=== PATIENT | female | born 1935 | race Caucasian/White ===

== ENCOUNTER 2021-08-03 12:33 | Inpatient (IN) ==
[2021-08-03] MEDS ORDERED: SODIUM CHLORIDE 0.9% 500 ML IV SCH (13:15)
--- NOTE | 2021-08-03 13:22 | Emergency Department Note ---
Impression & Plan Post-op bleeding, Weakness, Anemia, DONELL (acute kidney injury) ED Provider Note NAME: KEVIN CHRISTINE AGE: 86 SEX: F : 1935 ARRIVES VIA: Ambulance INFORMANT: [Patient][nursing] ED PROVIDER(S): [Irving Pack MD] CHIEF COMPLAINT: Bleeding HISTORY OF PRESENT ILLNESS: The patient is an 86-year-old female who had right hip replacement surgery on the , 4 days ago. She was discharged and arrived at [facility] last evening. This morning, her right hip incision was soaked in blood and she was hypotensive in the 80s. A hemoglobin was checked and the value was 6.7. She had been in the eights apparently at discharge from the hospital. The patient currently feels a bit fatigued/weak. No chest pain or shortness of breath. No nausea or vomiting. No fever or chills. As per EMS, her blood pressure has improved to normal on the ride here, she did not receive any IV fluids. Of note, the patient is on Coumadin for A. fib. REVIEW OF SYSTEMS: See HPI for pertinent positives and negatives. A total of ten systems were revie wed and were otherwise negative. PMHx/PSHx: See Below SOCIAL HISTORY: See Below. PHYSICAL EXAM: GENERAL: Patient is in no acute distress. HEENT: No acute trauma, normocephalic atraumatic, mucous membranes moist, no nasal congestion, no scleral icterus. NECK: No stridor, no adenopathy, no meningismus, trachea is midline. LUNGS: Clear to auscultation bilaterally, no wheeze, no rhonchi, breath sounds equal. HEART: Without murmurs gallops or rubs, regular rate and rhythm. ABDOMEN: Soft, nontender, bowel sounds positive, no hernias, no peritonitis. EXTREMITIES: No cyanosis. The patient's bryan along the right lateral hip are intact. The dressing was soaked with blood however, there is no active bleeding. No surrounding erythema. NEUROLOGIC: Oriented x 3, no acute motor or sensory deficits, no focal weakness. SKIN: No rash, no jaundice, no diaphoresis. Pale. DIFFERENTIAL DIAGNOSIS: Coagulopathy, anemia, hematoma, thrombocytopenia, cellulitis, abscess, postop bleeding, among others. EMERGENCY DEPARTMENT COURSE/PROCEDURES: ECG: Indication was weakness and bleeding. The ECG shows a sinus rhythm with what I believe is a PAC. There is no ST elevation, QTc is 383. The rate is 72. There is some nonspecific ST change. Continuous Cardiac Monitoring: An order was placed for continuous cardiac monitoring. The monitor shows a rate of 81 with normal sinus rhythm. MEDICAL DECISION MAKING: There is a mild leukocytosis, this could be consistent with infection or possibly the stress of her situation. Hemoglobin was low at 7.5. There was a normal platelet count. INR was high at 1.6, consistent with her Coumadin use. Creatinine was quite high at 4.39. This is above her baseline and likely consistent with some acute kidney injury. No worrisome liver enzyme elevation. Patient appeared to be in a euthyroid state. Troponin was somewhat elevated and possibly consistent with cardiac injury or strain. ECG showed a sinus rhythm, no acute ischemic change. Covid testing was negative. On exam, the patient was no longer bleeding from the right hip surgical wound. The dressing had been soaked prior to arrival though. The patient is not in need of an emergent blood transfusion unless her hemoglobin drops further. I do think she requires some observation though. Her Coumadin should be held. I did speak with the patient, I talked with case management. The on-call hosp italist was consulted. During the patient's ED stay, she was given IV saline, 500 cc. She has been resting comfortably. Past Med/Surg History Medical History AV fistula LUE Diverticular disease ESRD (end stage renal disease) on dialysis started dialysis 3.5 years ago - [facility] Sat - [facility] Couch (cause of ESRD unk) GERD (gastroesophageal reflux disease) HTN (hypertension) Hyperlipemia Irregular heart beat does not follow w/ cardio Osteoarthritis Osteoporosis Spinal stenosis Surgical History History of cataract surgery RT History of colonoscopy History of cystoscopy History of hysterectomy with unilateral oophorectomy History of knee replacement procedure of left knee History of knee replacement procedure of right knee Status post biopsy of kidney Status post insertion of dialysis catheter removed Family History Son Diabetes Social History Smoking Status: Never smoker Second Hand Exposure: Yes ( SMOKED); Hx Alcohol Use: No Hx Substance Use: No Preferred Language: Tajik Communication Ability: Effective Shredder Tender Peat Required: No Beliefs That Will Affect Care: None Current Living Situation: Alone Other Information That Helps Us Care for You: No Feels Safe at Home: Yes Safety Concerns: Feels Safe At This Time Assistive Devices: Denture - Upper, Denture - Lower and Glasses Allergies Allergies Allergy/AdvReac Type Severity Reaction Status Date / Time Penicillins Allergy Intermediate SWELLING Verified 08/03/21 14:37 Sulfa (Sulfonamide Allergy Intermediate HIVES Verified 08/03/21 14:37 Antibiotics) hydrochlorothiazide Allergy Mild ITCHING Verified 08/03/21 14:37 oxycodone AdvReac Mild Vomiting Verified 08/03/21 14:37 Home Meds Home Medications Medication Instructions Recorded Confirmed acetaminophen 650 mg 650 mg PO Q12H PRN 05/09/20 08/03/21 tablet,extended release (Tylenol Arthritis Pain) atorvastatin 20 mg tablet 20 mg PO QAM 05/09/20 08/03/21 omeprazole 20 mg tablet,delayed 20 mg PO QAM PRN 05/09/20 08/03/21 release sevelamer carbonate 800 mg tablet 800 mg PO TIDM 05/09/20 08/03/21 (Renvela) vitamin B complex and vitamin C 1 cap PO QPM 05/09/20 08/03/21 no.20-folic acid 1 mg capsule (Triphrocaps) digoxin 125 mcg (0.125 mg) tablet 0.625 mcg PO MOWEFR 08/03/21 08/03/21 metoprolol succinate 25 mg 12.5 mg PO BID 08/03/21 08/03/21 tablet,extended release 24 hr warfarin 2.5 mg tablet (Jantoven) 2.5 mg PO UD 08/03/21 08/03/21 Results & Data (ED) Vital Signs Vital Signs - 24 hr 08/03/21 12:51 08/03/21 13:20 08/03/21 13:30 Temperature 36.7 C Temperature Source Oral Pulse Rate 73 81 76 Pulse Rate [Apical] 73 Pulse Rate from SpO2 Sensor 75 Respiratory Rate 20 20 20 Respiratory Effort / Characteristics Non-Labored Spontaneous Respiratory Depth Normal Respiratory Pattern Regular Blood Pressure 121/51 L 129/50 L Blood Pressure [Right Arm] 121/51 L Blood Pressure Mean 74 76 Blood Pressure Mean [Right Arm] 74 Pulse Oximetry 97 93 92 Oxygen Delivery Method Room Air Room Air Sepsis Recent Fever Within 48 Hours No Sepsis New/Unexplained Change in Mental Status No Sepsis Action Taken by Nursing No Action Required 08/03/21 14:00 08/03/21 14:33 08/03/21 15:00 Temperature Temperature Source Pulse Rate 82 82 84 Pulse Rate [Apical] Pulse Rate from SpO2 Sensor 84 77 Respiratory Rate 16 20 20 Respiratory Effort / Characteristics Respiratory Depth Respiratory Pattern Blood Pressure 117/40 L 123/52 L Blood Pressure [Right Arm] Blood Pressure Mean 65 75 Blood Pressure Mean [Right Arm] Pulse Oximetry 92 95 94 Oxygen Delivery Method Sepsis Recent Fever Within 48 Hours Sepsis New/Unexplained Change in Mental Status Sepsis Action Taken by Residential Medications Current Medication List: was personally reviewed by me Laboratory Data Attestation: I reviewed the patient's lab results. Result diagrams: 08/03/21 13:16 08/03/21 13:16 Lab Results 08/03/21 08/03/21 08/03/21 Range/Units 13:16 13:16 13:16 WBC 12.83 H (4.8-10.8) K/uL RBC 2.46 L (4.2-5.4) M/uL Hgb 7.5 L (12.0-16.0) g/dL Hct 22.6 L (37-47) % MCV 91.9 (80-100) fL MCH 30.5 (25-34) pg MCHC 33.2 (32-36) g/dL RDW Std Deviation 51.7 H (36.4-46.3) fL RDW Coeff of Laura 15.6 H (11.5-14.5) % Plt Count 292 (130-400) K/uL MPV 9.0 (7.4-10.4) fL Immature Gran % (Auto) 0.8 % Neut % (Auto) 84.8 % Lymph % (Auto) 5.5 % Stephenson % (Auto) 8.6 % Eos % (Auto) 0.2 % Baso % (Auto) 0.1 % Neut # (Auto) 10.88 H (1.4-6.5) K/uL Lymph # (Auto) 0.71 L (1.2-3.4) K/uL Stephenson # (Auto) 1.10 H (0.11-0.59) K/uL Eos # (Auto) 0.03 (0-0.5) K/uL Baso # (Auto) 0.01 (0-0.2) K/uL Immature Gran # (Auto) 0.10 H (0.00-0.02) K/uL Rouleaux 1+ PT 15.9 H (9.0-12.0) Seconds INR 1.6 H (0.9-1.1) APTT 42.2 H (21.0-31.0) Seconds PTT Ratio 1.6 Sodium 134 L (136-145) mmol/L Potassium 3.7 (3.5-5.1) mmol/L Chloride 96 L (98-107) mmol/L Carbon Dioxide 27 (21-32) mmol/L Anion Gap 11.0 (3-11) BUN 35 H (7-18) mg/dl Creatinine 4.39 H (0.6-1.2) mg/dl Est Cr Clr Drug Dosing 7.5 ml/min Est GFR ( Amer) 9.8 ml/min Est GFR (Non-Af Amer) 8.5 ml/min BUN/Creatinine Ratio 7.9 L (10-20) Glucose 104 H (70-99) mg/dl Calcium 8.4 L (8.5-10.1) mg/dl Magnesium 2.4 (1.8-2.4) mg/dl Total Bilirubin 0.5 (0.2-1) mg/dl AST 40 H (15-37) U/L ALT < 6 L (12-78) U/L Alkaline Phosphatase 87 (45-117) U/L Troponin I 0.967 H* (0-0.045) ng/ml Total Protein 6.4 (6.4-8.2) gm/dl Albumin 2.5 L (3.4-5.0) gm/dl Globulin 3.9 (2.5-4.0) gm/dl Albumin/Globulin Ratio 0.6 L (0.9-2) TSH 0.331 (0.300-4.500) uIu/ml COVID-19 Eval Order SARS-CoV-2 (PCR) (Negative) Blood Type Blood Type Recheck Antibody Screen Crossmatch 08/03/21 08/03/21 08/03/21 Range/Units 13:21 13:36 13:36 WBC (4.8-10.8) K/uL RBC (4.2-5.4) M/uL Hgb (12.0-16.0) g/dL Hct (37-47) % MCV (80-100) fL MCH (25-34) pg MCHC (32-36) g/dL RDW Std Deviation (36.4-46.3) fL RDW Coeff of Laura (11.5-14.5) % Plt Count (130-400) K/uL MPV (7.4-10.4) fL Immature Gran % (Auto) % Neut % (Auto) % Lymph % (Auto) % Stephenson % (Auto) % Eos % (Auto) % Baso % (Auto) % Neut # (Auto) (1.4-6.5) K/uL Lymph # (Auto) (1.2-3.4) K/uL Stephenson # (Auto) (0.11-0.59) K/uL Eos # (Auto) (0-0.5) K/uL Baso # (Auto) (0-0.2) K/uL Immature Gran # (Auto) (0.00-0.02) K/uL Rouleaux PT (9.0-12.0) Seconds INR (0.9-1.1) APTT (21.0-31.0) Seconds PTT Ratio Sodium (136-145) mmol/L Potassium (3.5-5.1) mmol/L Chloride (98-107) mmol/L Carbon Dioxide (21-32) mmol/L Anion Gap (3-11) BUN (7-18) mg/dl Creatinine (0.6-1.2) mg/dl Est Cr Clr Drug Dosing ml/min Est GFR ( Amer) ml/min Est GFR (Non-Af Amer) ml/min BUN/Creatinine Ratio (10-20) Glucose (70-99) mg/dl Calcium (8.5-10.1) mg/dl Magnesium (1.8-2.4) mg/dl Total Bilirubin (0.2-1) mg/dl AST (15-37) U/L ALT (12-78) U/L Alkaline Phosphatase (45-117) U/L Troponin I (0-0.045) ng/ml Total Protein (6.4-8.2) gm/dl Albumin (3.4-5.0) gm/dl Globulin (2.5-4.0) gm/dl Albumin/Globulin Ratio (0.9-2) TSH (0.300-4.500) uIu/ml COVID-19 Eval Order Covid19 at [facility] SARS-CoV-2 (PCR) NEGATIVE (Negative) Blood Type A Positive Blood Type Recheck Antibody Screen NEGATIVE Crossmatch See Detail 08/03/21 Range/Units 14:06 WBC (4.8-10.8) K/uL RBC (4.2-5.4) M/uL Hgb (12.0-16.0) g/dL Hct (37-47) % MCV (80-100) fL MCH (25-34) pg MCHC (32-36) g/dL RDW Std Deviation (36.4-46.3) fL RDW Coeff of Laura (11.5-14.5) % Plt Count (130-400) K/uL MPV (7.4-10.4) fL Immature Gran % (Auto) % Neut % (Auto) % Lymph % (Auto) % Stephenson % (Auto) % Eos % (Auto) % Baso % (Auto) % Neut # (Auto) (1.4-6.5) K/uL Lymph # (Auto) (1.2-3.4) K/uL Stephenson # (Auto) (0.11-0.59) K/uL Eos # (Auto) (0-0.5) K/uL Baso # (Auto) (0-0.2) K/uL Immature Gran # (Auto) (0.00-0.02) K/uL Rouleaux PT (9.0-12.0) Seconds INR (0.9-1.1) APTT (21.0-31.0) Seconds PTT Ratio Sodium (136-145) mmol/L Potassium (3.5-5.1) mmol/L Chloride (98-107) mmol/L Carbon Dioxide (21-32) mmol/L Anion Gap (3-11) BUN (7-18) mg/dl Creatinine (0.6-1.2) mg/dl Est Cr Clr Drug Dosing ml/min Est GFR ( Amer) ml/min Est GFR (Non-Af Amer) ml/min BUN/Creatinine Ratio (10-20) Glucose (70-99) mg/dl Calcium (8.5-10.1) mg/dl Magnesium (1.8-2.4) mg/dl Total Bilirubin (0.2-1) mg/dl AST (15-37) U/L ALT (12-78) U/L Alkaline Phosphatase (45-117) U/L Troponin I (0-0.045) ng/ml Total Protein (6.4-8.2) gm/dl Albumin (3.4-5.0) gm/dl Globulin (2.5-4.0) gm/dl Albumin/Globulin Ratio (0.9-2) TSH (0.300-4.500) uIu/ml COVID-19 Eval Order SARS-CoV-2 (PCR) (Negative) Blood Type Blood Type Recheck A Positive Antibody Screen Crossmatch Administered Medications Discontinued Medications Sodium Chloride (Nss) 500 mls @ 999 mls/hr IV .[id number] MARINE Stop: 08/03/21 13:45 Last Infusion: 08/03/21 14:12 Dose: 0 mls/hr Documented by: [id number] Admin: 08/03/21 13:27 Dose: 999 mls/hr Documented by: [id number] Discharge Plan Visit Data Chief Complaint: Bleeding ED Provider: Irving Pack Discharge Problem: Post-op bleeding, Weakness, Anemia, DONELL (acute kidney injury) Patient Disposition: Admitted As Inpatient Condition: Fair Discharge Instructions Interventions: ED Discharge Assessment Last Done: 08/03/21 16:34
[2021-08-03 13:32] LABS: Basophils # (auto) 0.01 K/uL (0-0.2); Basophils % (auto) 0.1 %; Eosinophils # (auto) 0.03 K/uL (0-0.5); Eosinophils % (auto) 0.2 %; Hematocrit (blood only) 22.6 % (37-47); Hemoglobin 7.5 g/dL (12.0-16.0); Immature Granulocytes % (auto) 0.8 %; Lymphocytes # (auto) 0.71 K/uL (1.2-3.4); Lymphocytes % (auto) 5.5 %; Mean Corpuscular Hemoglobin 30.5 pg (25-34); Mean Corpuscular Hgb Conc 33.2 g/dL (32-36); Mean Corpuscular Volume 91.9 fL (80-100); Monocytes % (auto) 8.6 %; Neutrophils # (auto) 10.88 K/uL (1.4-6.5); Neutrophils % (auto) 84.8 %; Platelet Count 292 K/uL (130-400); RDW Coefficient of Variation 15.6 % (11.5-14.5); RDW Standard Deviation 51.7 fL (36.4-46.3); Red Blood Count 2.46 M/uL (4.2-5.4); White Blood Count 12.83 K/uL (4.8-10.8)
[2021-08-03 13:49] LABS: Alanine Aminotransferase < 6 U/L (12-78); Albumin Level 2.5 gm/dl (3.4-5.0); Aspartate Aminotransferase 40 U/L (15-37); BUN Creatinine Ratio 7.9 (10-20); Blood Urea Nitrogen 35 mg/dl (7-18); Calcium 8.4 mg/dl (8.5-10.1); Carbon Dioxide 27 mmol/L (21-32); Chloride 96 mmol/L (98-107); Creatinine Clr Calc Pharmacy 7.5 ml/min; Est GFR (African American) 9.8 ml/min; Est GFR (Non-African American) 8.5 ml/min; Glucose 104 mg/dl (70-99); Magnesium 2.4 mg/dl (1.8-2.4); Potassium 3.7 mmol/L (3.5-5.1); Sodium 134 mmol/L (136-145)
[2021-08-03 13:50] LABS: Rouleaux 1+
[2021-08-03 13:51] LABS: INR 1.6 (0.9-1.1); Partial Thromboplastin Ratio 1.6; Partial Thromboplastin Time 42.2 Seconds (21.0-31.0); Prothrombin Time 15.9 Seconds (9.0-12.0)
[2021-08-03 14:02] LABS: Albumin Globulin Ratio 0.6 (0.9-2); Alkaline Phosphatase 87 U/L (45-117); Bilirubin,Total 0.5 mg/dl (0.2-1); Globulin 3.9 gm/dl (2.5-4.0); Thyroid Stimulating Hormone 0.331 uIu/ml (0.300-4.500); Total Protein 6.4 gm/dl (6.4-8.2); Troponin I 0.967 ng/ml (0-0.045)
--- NOTE | 2021-08-03 15:18 | History & Physical Report ---
Date of Service August 03, 2021 Assessment & Plan (1) Postoperative anemia: Plan: - Admit to med surg with tele - Trend H&H routinely, hgb is 7.5, transfuse if <7.0, will ask attending to obtain blood consent, type and cross - No active bleed currently- Wound dressing c/d/i - S/P R intertrochanteric hip fracture ORIF on 07/[address] Artis MD at [facility] - Hold coumadin for now, trend INR, 1.6 on admission - Noted elevated troponin 0.967, will trend x2 more sets, no EKG changes, no ST wave inversions or signs of ischemia (2) Paroxysmal A-fib: Plan: - Hx of such, rate controlled with digoxin - Hold Coumadin as above, routinely takes 5 mg on all days except for Saturdays 7.5 mg -trend daily INRs (3) HTN (hypertension): Plan: -Blood pressure stable currently, continue metoprolol succinate 12.5 twice daily, digoxin 62.5 mg MWF (4) Hyperlipemia: Plan: -Continue atorvastatin 20 mg daily (5) ESRD (end stage renal disease) on dialysis: Plan: -We will consult nephrology for dialysis, normal regimen is Th Sat. Got session last night, full 3.5 hours, and took at least 1 L off per pt. -Cr. 4.39, BUN 35, K+ 3.7, Na+ 134 - Continue sevelamer carbonate 800 mg TID, triphrocaps (6) Osteoporosis: Plan: - noted, PT/OT consults DVT ppx: - teds, scds, hold Coumadin CODE: Full code Dispo: From home, likely to remain in the hospital x 1-2 days. CM to assist with discharge planning to [facility] for physical therapy after hospital stay. History of Present Illness Primary Care Provider: [facility] This is an 86 yo F with PMhx of paroxysmal afib on coumadin, HTN, HLD, Osteopenia, Iron deficiency, ESRD on dialysis, hx of covid-19 infection who underwent recent ORIF of R intertrochanteric femur fracture on 07/31/[address] Sai Wisdom MD. The patient subsequently required a transfusion while in hospital for hbg of 6.8. which improved to 8.3-8.4. She was discharged to [facility] for physical therapy. Today the patient was noted to have a soaked bloody dressing over the right hip wound after participating in physical therapy, and was concern for active bleeding. Her BP was noted to be systolic of ~80. She did have dialysis session late last night where 1 L was pulled off. She was found to have a hemoglobin of 6.7 on recheck at E, and therefore transferred to [facility] ER. En route to the hospital, her BP improved without any intervention o r fluids. BP here has been in 120s/50-60s. Troponin is noted to be elevated at 0.9, however she denies any chest pain or shortness of breath, no chest heaviness, or flutter. INR is 1.6 as she is anticoagulated on Coumadin for paroxysmal A. fib. Routinely she takes 5 mg all days except for Saturdays when she takes 7.5 mg Coumadin. She did take coumadin last night but is unsure of how much. Denies lightheadedness or dizziness. Allergies Allergy/AdvReac Type Severity Reaction Status Date / Time Penicillins Allergy Intermediate SWELLING Verified 08/03/21 14:37 Sulfa (Sulfonamide Allergy Intermediate HIVES Verified 08/03/21 14:37 Antibiotics) hydrochlorothiazide Allergy Mild ITCHING Verified 08/03/21 14:37 oxycodone AdvReac Mild Vomiting Verified 08/03/21 14:37 Home Medications Medication Instructions Recorded Confirmed Type acetaminophen 650 mg 650 mg PO Q12H PRN 05/09/20 08/03/21 History tablet,extended release (Tylenol Arthritis Pain) atorvastatin 20 mg tablet 20 mg PO QAM 05/09/20 08/03/21 History omeprazole 20 mg tablet,delayed 20 mg PO QAM PRN 05/09/20 08/03/21 History release sevelamer carbonate 800 mg tablet 800 mg PO TIDM 05/09/20 08/03/21 History (Renvela) vitamin B complex and vitamin C 1 cap PO QPM 05/09/20 08/03/21 History no.20-folic acid 1 mg capsule (Triphrocaps) digoxin 125 mcg (0.125 mg) tablet 0.625 mcg PO MOWEFR 08/03/21 08/03/21 History metoprolol succinate 25 mg 12.5 mg PO BID 08/03/21 08/03/21 History tablet,extended release 24 hr warfarin 2.5 mg tablet (Jantoven) 2.5 mg PO UD 08/03/21 08/03/21 History Past Med/Surg History Medical History AV fistula LUE Diverticular disease ESRD (end stage renal disease) on dialysis started dialysis 3.5 years ago - T[place], [place], Sat - [facility] (cause of ESRD unk) GERD (gastroesophageal reflux disease) HTN (hypertension) Hyperlipemia Irregular heart beat does not follow w/ cardio Osteoarthritis Osteoporosis Spinal stenosis Surgical History History of cataract surgery RT History of colonoscopy History of cystoscopy History of hysterectomy with unilateral oophorectomy History of knee replacement procedure of left knee History of knee replacement procedure of right knee Status post biopsy of kidney Status post insertion of dialysis catheter removed Family History Son Diabetes Social History Smoking Status: Never smoker Second Hand Exposure: Yes ( SMOKED); Hx Alcohol Use: No Hx Substance Use: No Preferred Language: Lithuanian Communication Ability: Effective Electrician Locomotive Required: No Beliefs That Will Affect Care: None Current Living Situation: Alone Other Information That Helps Us Care for You: No Feels Safe at Home: Yes Safety Concerns: Feels Safe At This Time Assistive Devices: Walker Review of Systems Review of Systems: Constitutional: No fever, sweats or chills Eyes: No diplopia, no worsening or blurred vision ENT: normal hearing, no trouble swallowing Respiratory: No cough, sputum, dyspnea at rest or on exertion Cardiovascular: No chest pain, tightness or palpitations Abdomen: No pain, nausea, vomiting, diarrhea or constipation, last bowel movement was today Musculoskeletal: No joint pain, calf pain, swelling, has been able to take few steps with assistance and walker with the right leg. Neurologic: No weakness, numbness/tingling, or balance problems, using walker Psychiatric: No anxiety or depression Skin: No rash or itch Physical Exam Physical Exam: General: awake, alert, no apparent distress Head: Normocephalic, atraumatic ENT: PERRL, EOMI, no pharyngeal exudate, mucous membranes moist, area of ecchymosis near inside corner of the left eye Chest: Clear to auscultation, on room air, no adventitious breath sounds Cardiac: Regular rate and rhythm, no murmur, no JVD, normal peripheral pulses, good capillary refill Abdominal: NABS x 4 quadrants, soft, nondistended, nontender to palpation, no rebound or guarding Extremities: Left upper extremity with AVF, + thrill and bruit, + multiple areas of ecchymosis over upper extremities from blood draws during her last hospital stay, RLE hip dressing C/D/I, incision site of R distal femur dressing C/D/I, no peripheral edema or erythema, calfs nontender to palpation Psych: Normal mood and affect Neuro: AAO x 3, strength intact bilaterally and rated 5/5, no motor deficits, speech is clear, no peripheral sensory deficits Results & Data Results & Data ([facility]) Vital Signs (Past 12 Hours) Vital Signs Temp Pulse Pulse Resp BP BP Pulse Ox 08/03/21 14:00 82 16 117/40 L 92 08/03/21 13:30 76 20 129/50 L 92 08/03/21 13:20 81 20 93 08/03/21 12:51 36.7 C 73 73 20 121/51 L 121/51 L 97 Laboratory Results Abnormal lab results 08/03/21 08/03/21 08/03/21 Range/Units 13:16 13:16 13:16 WBC 12.83 H (4.8-10.8) K/uL RBC 2.46 L (4.2-5.4) M/uL Hgb 7.5 L (12.0-16.0) g/dL Hct 22.6 L (37-47) % RDW Std Deviation 51.7 H (36.4-46.3) fL RDW Coeff of Laura 15.6 H (11.5-14.5) % Neut # (Auto) 10.88 H (1.4-6.5) K/uL Lymph # (Auto) 0.71 L (1.2-3.4) K/uL Elliott # (Auto) 1.10 H (0.11-0.59) K/uL Immature Gran # (Auto) 0.10 H (0.00-0.02) K/uL PT 15.9 H (9.0-12.0) Seconds INR 1.6 H (0.9-1.1) APTT 42.2 H (21.0-31.0) Seconds Sodium 134 L (136-145) mmol/L Chloride 96 L (98-107) mmol/L BUN 35 H (7-18) mg/dl Creatinine 4.39 H (0.6-1.2) mg/dl BUN/Creatinine Ratio 7.9 L (10-20) Glucose 104 H (70-99) mg/dl Calcium 8.4 L (8.5-10.1) mg/dl AST 40 H (15-37) U/L ALT < 6 L (12-78) U/L Troponin I 0.967 H* (0-0.045) ng/ml Albumin 2.5 L (3.4-5.0) gm/dl Albumin/Globulin Ratio 0.6 L (0.9-2) Crossmatch 08/03/21 Range/Units 13:21 WBC (4.8-10.8) K/uL RBC (4.2-5.4) M/uL Hgb (12.0-16.0) g/dL Hct (37-47) % RDW Std Deviation (36.4-46.3) fL RDW Coeff of Laura (11.5-14.5) % Neut # (Auto) (1.4-6.5) K/uL Lymph # (Auto) (1.2-3.4) K/uL Elliott # (Auto) (0.11-0.59) K/uL Immature Gran # (Auto) (0.00-0.02) K/uL PT (9.0-12.0) Seconds INR (0.9-1.1) APTT (21.0-31.0) Seconds Sodium (136-145) mmol/L Chloride (98-107) mmol/L BUN (7-18) mg/dl Creatinine (0.6-1.2) mg/dl BUN/Creatinine Ratio (10-20) Glucose (70-99) mg/dl Calcium (8.5-10.1) mg/dl AST (15-37) U/L ALT (12-78) U/L Troponin I (0-0.045) ng/ml Albumin (3.4-5.0) gm/dl Albumin/Globulin Ratio (0.9-2) Crossmatch See Detail ECG Additional Comments: 03-AUG-2021 13:29:26 [facility]-EDSTAT ROUTINE RETRIEVAL Sinus rhythm with occasional Premature ventricular complexes Inferior infarct , age undetermined Possible Anterior infarct (cited on or before 16-NOV-2010) Abnormal ECG When compared with ECG of 16-NOV-2010 14:00, Premature ventricular complexes are now Present Inferior infarct is now Present Nonspecific T wave abnormality, worse in Inferior leads T wave inversion now evident in Lateral leads 25mm/s 10mm/mV 150Hz 9.0.9 12SL 241 MARLO: 11 Referred by: REFERRED SELF Unconfirmed Vent. rate 72 BPM TX interval 154 ms QRS duration 84 ms QT/QTc 350/383 ms Code Status & VTE Plan Code Status Full code Supervising Physician Co-Signing Physician Notes Postoperative anemia History of paroxysmal A. fib on Coumadin History of hypertension History of hyperlipidemia ESRD on dialysis History of osteoporosis Patient presented with hemoglobin of 7.5 on admission. Transfuse with hemoglobin less than 7. No episodes of overt bleeding. Continue holding Coumadin for now. Consult nephrology for dialysis. Late entry Patient was seen and examined on 08/03/21 I performed a history and physical examination of the patient on 08/03/21, including specifically H&P. I have discussed the patient's management with the advanced practitioner. Please refer to the Adeola Gregory note for the documented findings and plan of care.
[2021-08-03] MEDS ORDERED: ONDANSETRON INJ 2 MG/ML 2 ML VIAL IV PRN (17:20)
[2021-08-03] MEDS ORDERED: PANTOprazole 40 MG TAB PO PRN (17:25)
--- NOTE | 2021-08-03 18:05 | Electrocardiogram Report ---
Test Reason : Blood Pressure : / mmHG Vent. Rate : 072 BPM Atrial Rate : 072 BPM P-R Int : 154 ms QRS Dur : 084 ms QT Int : 350 ms P-R-T Axes : 055 -18 -66 degrees QTc Int : 383 ms Sinus rhythm with occasional Premature ventricular complexes Possible Old Anterior infarct (cited on or before 16-NOV-2010) Nonspecific T wave abnormality Lateral leads Abnormal ECG When compared with ECG of 16-NOV-2010 14:00, Premature ventricular complexes are now Present Nonspecific T wave abnormality now present Lateral leads Confirmed by Nikos Alamo ([id number]) on 08/03/2021 6:05:38 PM Referred By: REFERRED SELF Confirmed By:Nikos Alamo
[2021-08-03] MEDS: SEVELAMER HCL 800 MG TABLET PO SCH (19:22)
[2021-08-03] MEDS: NEPHROCAPS PO SCH (20:28)
[2021-08-03] MEDS: METOPROLOL SUCC 25MG EXT REL TAB PO SCH (20:29)
[2021-08-04 04:02] LABS: Hematocrit (blood only) 18.6 % (37-47); Hemoglobin 6.2 g/dL (12.0-16.0); Mean Corpuscular Hemoglobin 30.8 pg (25-34); Mean Corpuscular Hgb Conc 33.3 g/dL (32-36); Mean Corpuscular Volume 92.5 fL (80-100); Mean Platelet Volume 8.9 fL (7.4-10.4); Platelet Count 267 K/uL (130-400); RDW Coefficient of Variation 15.5 % (11.5-14.5); RDW Standard Deviation 51.8 fL (36.4-46.3); Red Blood Count 2.01 M/uL (4.2-5.4); White Blood Count 9.17 K/uL (4.8-10.8)
[2021-08-04] MEDS ORDERED: SODIUM CHLORIDE 0.9% 250 ML IV PRN (04:11)
[2021-08-04 04:27] LABS: Alanine Aminotransferase < 6 U/L (12-78); Albumin Globulin Ratio 0.6 (0.9-2); Albumin Level 2.1 gm/dl (3.4-5.0); Alkaline Phosphatase 69 U/L (45-117); Aspartate Aminotransferase 31 U/L (15-37); BUN Creatinine Ratio 8.3 (10-20); Bilirubin,Total 0.5 mg/dl (0.2-1); Blood Urea Nitrogen 45 mg/dl (7-18); Calcium 7.9 mg/dl (8.5-10.1); Carbon Dioxide 26 mmol/L (21-32); Chloride 99 mmol/L (98-107); Globulin 3.4 gm/dl (2.5-4.0); Glucose 83 mg/dl (70-99); Magnesium 2.2 mg/dl (1.8-2.4); Potassium 3.3 mmol/L (3.5-5.1); Sodium 134 mmol/L (136-145); Total Protein 5.5 gm/dl (6.4-8.2)
[2021-08-04 04:51] LABS: Creatinine Clr Calc Pharmacy 5.4 ml/min; Est GFR (African American) 7.6 ml/min; Est GFR (Non-African American) 6.6 ml/min
[2021-08-04 04:52] LABS: Troponin I 0.662 ng/ml (0-0.045)
[2021-08-04] MEDS: bisacodyL 5 MG TABEC PO SCH (08:15)
[2021-08-04] MEDS: SEVELAMER HCL 800 MG TABLET PO SCH ×3 (08:17→18:54)
[2021-08-04] MEDS: ATORVASTATIN 20 MG TAB PO SCH (08:17)
[2021-08-04] MEDS: METOPROLOL SUCC 25MG EXT REL TAB PO SCH ×2 (08:17→19:50)
[2021-08-04] MEDS ORDERED: EPOETIN ALFA 10,000 UNITS/ML VIAL IV ONE (09:46)
[2021-08-04] MEDS ORDERED: SODIUM CHLORIDE 0.9% 1000ML 1,000 ML IV PRN (09:46)
[2021-08-04] MEDS: ACETAMINOPHEN 325 MG TAB PO PRN (10:15)
--- NOTE | 2021-08-04 14:42 | Hospitalist Progress Note ---
Date of Service August 04, 2021 Assessment & Plan (1) Postoperative anemia: Plan: -S/P R intertrochanteric hip fracture ORIF on 07/[address] Artis MD at [facility] -cont holding coumadin -received 1 unit pRBCs today with improvement in Hb. Cont to trend in am-no further transfusion needed at this time. (2) Paroxysmal A-fib: Plan: chronic, controlled. Cont digoxin/Toprol per home regimen. Coumadin on hold as above. (3) ESRD (end stage renal disease) on dialysis: Plan: -We will consult nephrology for dialysis, normal regimen is Sat. HD session again today. (4) DVT prophylaxis: Plan: Contraindicated in setting of anemia. Full Code [facility] and Anticipated Discharge Date Admission Date: August 03, 2021 Subjective 86 yo F s/p R hip surgery with subsequent bleeding and post operative anemia/. Hb was 6.2 this morning. She was given one unit of pRBCs followed by HD Repeat Hb was 8.0 and she reported initial symptoms of malaise are now gone No pain from surgical site. Tolerating PO Review of Systems Review of Systems: At least ten systems were reviewed and negative except as indicated in HPI above. Physical Exam Physical Exam: CONSTITUTIONAL: WNWD, vitals as above, generally well- appearing EYES: normal conjunctivae, no scleral icterus ENT: external ear and nose normal, MMM RESPIRATORY: clear to auscultation bilaterally, no crackles, rales or wheezes, normal respiratory effort CARDIOVASCULAR: regular rate and rhythm, S1 and 2 heard without murmurs, gallops or rubs, no JVD, no peripheral edema GASTROINTESTINAL: soft, nontender, ND, no guarding MUSCULOSKELETAL: strength 5/5 throughout, head is normocephalic and atraumatic, neck supple, normal palpation of chest wall without tenderness SKIN: warm and dry NEUROLOGIC: CN 2-12 grossly intact, no sensory deficit, normal cognition, normal speech, no tremor PSYCHIATRIC: alert cooperative and oriented to person, place and time. Results & Data Results & Data ([facility]) Vital Signs (Past 12 Hours) Vital Signs Temp Pulse Pulse Pulse Resp BP BP 08/04/21 13:40 68 117/49 L 08/04/21 13:20 69 122/47 L 08/04/21 13:00 68 118/47 L 08/04/21 12:40 56 L 126/55 L 08/04/21 12:20 70 114/47 L 08/04/21 12:00 68 115/47 L 08/04/21 11:40 62 122/44 L 08/04/21 11:20 63 119/46 L 08/04/21 11:00 66 122/49 L 08/04/21 10:40 71 132/50 L 08/04/21 10:34 70 123/45 L 08/04/21 10:27 36.5 C 73 08/04/21 08:00 76 08/04/21 07:56 37.1 C 76 20 120/50 L 08/04/21 07:40 37.1 C 81 20 135/57 L 08/04/21 06:36 36.6 C 80 18 120/52 L 08/04/21 06:10 36.6 C 84 18 129/61 08/04/21 05:41 37.1 C 77 20 121/55 L 08/04/21 05:25 37.1 C 80 16 125/55 L 08/04/21 05:00 36.7 C 80 69 20 104/57 L 121/74 Pulse Ox 08/04/21 13:40 08/04/21 13:20 08/04/21 13:00 08/04/21 12:40 08/04/21 12:20 08/04/21 12:00 08/04/21 11:40 08/04/21 11:20 08/04/21 11:00 08/04/21 10:40 08/04/21 10:34 08/04/21 10:27 08/04/21 08:00 08/04/21 07:56 99 08/04/21 07:40 95 08/04/21 06:36 96 08/04/21 06:10 96 08/04/21 05:41 96 08/04/21 05:25 08/04/21 05:00 97 Laboratory Results Short CBC 08/04/21 Range/Units 03:22 WBC 9.17 (4.8-10.8) K/uL Hgb 6.2 L* (12.0-16.0) g/dL Hct 18.6 L* (37-47) % Plt Count 267 (130-400) K/uL BMP 08/04/21 03:22 Sodium 134 L Potassium 3.3 L Chloride 99 Carbon Dioxide 26 BUN 45 H Creatinine 5.40 H* D Glucose 83 Calcium 7.9 L Cardiac Enzymes 08/03/21 08/04/21 Range/Units 18:38 03:22 Troponin I 0.768 H* 0.662 H* (0-0.045) ng/ml Liver Function 08/04/21 Range/Units 03:22 Total Bilirubin 0.5 (0.2-1) mg/dl AST 31 (15-37) U/L ALT < 6 L (12-78) U/L Alkaline Phosphatase 69 (45-117) U/L Albumin 2.1 L (3.4-5.0) gm/dl Medications Administered Current Inpatient Medications Acetaminophen (Acetaminophen 325 Mg Tab) 650 mg PO Q4H PRN PRN Reason: Moderate Pain Stop: 09/02/21 17:19 Last Admin: 08/04/21 10:15 Dose: 650 mg Documented by: Atorvastatin Calcium (Atorvastatin 20 Mg Tab) 20 mg PO QAM [facility] Stop: 09/03/21 08:59 Last Admin: 08/04/21 08:17 Dose: 20 mg Documented by: Bisacodyl (Bisacodyl 5 Mg Tabec) 5 mg PO DAILY [facility] Stop: 09/03/21 08:59 Last Admin: 08/04/21 08:15 Dose: Not Given Documented by: Digoxin (Digoxin 0.125 Mg Tab) 0.0625 mg PO MoWeFr [facility] Stop: 09/03/21 14:59 Sodium Chloride (Nss 1000ml) 1,000 mls @ 0 mls/hr IV .Q0M PRN PRN Reason: For Hemodialysis Use ONLY Stop: 08/04/21 15:45 Metoprolol Succinate (Metoprolol Succ 25mg Ext Rel Tab) 12.5 mg PO BID [facility] Stop: 09/02/21 20:59 Last Admin: 08/04/21 08:17 Dose: 12.5 mg Documented by: Ondansetron HCl (Ondansetron Inj 2 Mg/Ml 2 Ml Vial) 4 mg IV Q4H PRN PRN Reason: Nausea And Vomiting Stop: 09/02/21 17:19 Pantoprazole Sodium (Pantoprazole 40 Mg Tab) 40 mg PO QAM PRN; Protocol PRN Reason: Stomach Upset Stop: 09/02/21 17:24 Sevelamer HCl (Sevelamer Hcl 800 Mg Tablet) 800 mg PO TIDM [facility] Stop: 09/02/21 17:19 Last Admin: 08/04/21 08:17 Dose: 800 mg Documented by: Vitamin B Complex/Folic Acid (Nephrocaps) 1 cap PO QPM [facility] Stop: 09/02/21 20:59 Last Admin: 08/03/21 20:28 Dose: 1 cap Documented by:
[2021-08-04] MEDS ORDERED: DIGOXIN 0.125 MG TAB PO SCH (15:00)
[2021-08-04 16:36] LABS: Hematocrit (blood only) 26.3 % (37-47); Hemoglobin 8.7 g/dL (12.0-16.0)
[2021-08-04] MEDS: NEPHROCAPS PO SCH (19:50)
[2021-08-04] MEDS ORDERED: ALBUMIN 25% 12.5 GM/50 ML VIAL IV ONE (19:58)
[2021-08-04 20:16] LABS: Hematocrit (blood only) 24.6 % (37-47)
[2021-08-04] MEDS ORDERED: ACETAMINOPHEN 325 MG TAB PO STA (22:35)
[2021-08-04] MEDS ORDERED: DIGOXIN 0.125 MG/2.5 ML UDP PO STA (22:37)
[2021-08-04] MEDS: DIGOXIN 0.125 MG TAB PO SCH (23:01)
--- NOTE | 2021-08-04 23:20 | XRay Report ---
SINGLE VIEW CHEST CLINICAL HISTORY: Fever FINDINGS: An AP, portable, upright chest radiograph is compared to study dated 07/11/2010. The heart i s enlarged noting atherosclerotic calcification of the thoracic aorta. There is mild pulmonary vascul ar congestion. There is bibasilar atelectasis. No airspace consolidation or large pleural effusion is identified. No pneumothorax is seen. The skeletal structures are osteopenic. The bony thorax is marce sly intact. A vascular stent projects over the left axilla. IMPRESSION: Cardiomegaly with mild pulmonary vascular congestion. ACT 112: Negative or not required by law. Electronically signed by: Irving Dailey M.D. 08/04/2021 11:19 PM
[2021-08-05 07:20] LABS: Hematocrit (blood only) 24.3 % (37-47); Mean Corpuscular Hemoglobin 31.3 pg (25-34); Mean Corpuscular Hgb Conc 32.9 g/dL (32-36); Mean Corpuscular Volume 94.9 fL (80-100); Mean Platelet Volume 8.8 fL (7.4-10.4); Platelet Count 275 K/uL (130-400); RDW Coefficient of Variation 16.3 % (11.5-14.5); RDW Standard Deviation 54.8 fL (36.4-46.3); Red Blood Count 2.56 M/uL (4.2-5.4); White Blood Count 9.71 K/uL (4.8-10.8)
[2021-08-05 07:54] LABS: BUN Creatinine Ratio 7.8 (10-20); Calcium 8.4 mg/dl (8.5-10.1); Creatinine Clr Calc Pharmacy 7.8 ml/min; Est GFR (Non-African American) 11.2 ml/min; Potassium 3.1 mmol/L (3.5-5.1)
[2021-08-05] MEDS: METOPROLOL SUCC 25MG EXT REL TAB PO SCH ×2 (08:30→20:50)
[2021-08-05] MEDS: SEVELAMER HCL 800 MG TABLET PO SCH ×3 (08:30→17:05)
[2021-08-05] MEDS: bisacodyL 5 MG TABEC PO SCH (08:31)
[2021-08-05] MEDS: ATORVASTATIN 20 MG TAB PO SCH (08:32)
[2021-08-05] MEDS ORDERED: POTASSIUM CHLORIDE CRTAB 20 MEQ TABCR PO STA (12:13)
--- NOTE | 2021-08-05 12:21 | Nephrology Progress Note ---
Date of Service August 05, 2021 Assessment & Plan (1) ESRD (end stage renal disease) on dialysis: Plan: Her last dialysis was on Saturday , although she is a TTS . -Looks comfortable today electrolytes are within normal range. -Dialyze again on Saturday if needed or she can stick back to her TTS regimen. will do today again,.continue with 10,000 EPO dialysis (2) Anemia: Plan: Patient reports normal bleeding from the surgical site, Hb has been Continue with 10,000 EPO on dialysis. Blood transfusion is Hb less than 7. Admission and Anticipated Discharge Date Admission Date: August 03, 2021 Subjective Pain comfortably in bed, no shortness of breath no pedal edema Review of Systems Review of Systems: All systems reviewed & are unremarkable except as noted in HPI & below Physical Exam Physical Exam: GENERAL: Elderly white female who actually looks younger than her stated age. She is awake, alert, oriented x3. HEENT: Mucous membranes are moist. NECK: Supple. No jugular venous distention. CHEST: Bilaterally clear to auscultation. CARDIOVASCULAR: S1, S2 irregular. Soft systolic murmur heard. ABDOMEN: Soft, nontender. EXTREMITIES: Show no edema. AV fistula is present with good bruit and thrill. Results & Data ([facility]) Vital Signs (Past 12 Hours) Vital Signs Temp Pulse Pulse Pulse Resp BP Pulse Ox 08/05/21 07:28 88 08/05/21 07:11 37.0 C 82 20 130/60 94 08/05/21 03:31 36.9 C 83 18 109/58 L 96 08/05/21 00:29 37.2 C 89 18 110/59 L 94 Laboratory Results 08/05/21 06:33 08/05/21 06:33 (1) Anemia Anemia type: unspecified type Qualified Code(s): D64.9 - Anemia, unspecified
--- NOTE | 2021-08-05 16:18 | Hospitalist Progress Note ---
Date of Service August 05, 2021 Assessment & Plan (1) Postoperative anemia: Plan: -S/P R intertrochanteric hip fracture ORIF on 07/[address] Artis MD at [facility] -cont holding coumadin -received 1 unit pRBCs with improvement in Hb which remains stable. She is asymptomatic. Cont to trend in am-no further transfusion needed at this time. This is in the setting of chronic anemia secondary to ESRD. Receives EPO on dialysis. (2) Paroxysmal A-fib: Plan: chronic, controlled. Cont digoxin/Toprol per home regimen. Coumadin remains on hold in setting of acute postop blood loss anemia. She notably has been in sinus rhythm during this entire admission. (3) ESRD (end stage renal disease) on dialysis: Plan: -We will consult nephrology for dialysis, normal regimen is Sat. Per nephrology next planned hemodialysis session will be Saturday. Continue sevelamer per home regimen (4) DVT prophylaxis: Plan: Warfarin contraindicated in setting of anemia. Full Code Dispo-to rehab after the weekend. Gina Billy DO [facility] Admission and Anticipated Discharge Date Admission Date: August 03, 2021 Subjective 86 yo F s/p R hip surgery with subsequent bleeding and post operative anemia/. Hemoglobin was stable at 8.0 this morning Patient denies any night lightheadedness, shortness of breath, chest pain. She denies any pain in her surgical site Afebrile and no chills No pain from surgical site. Tolerating PO Review of Systems Review of Systems: At least ten systems were reviewed and negative except as indicated in HPI above. Physical Exam Physical Exam: CONSTITUTIONAL: WNWD, vitals as above, generally well- appearing EYES: normal conjunctivae, no scleral icterus ENT: external ear and nose normal, MMM RESPIRATORY: clear to auscultation bilaterally, no crackles, rales or wheezes, normal respiratory effort CARDIOVASCULAR: regular rate and rhythm, S1 and 2 heard without murmurs, gallops or rubs, no JVD, no peripheral edema GASTROINTESTINAL: soft, nontender, ND, no guarding MUSCULOSKELETAL: strength 5/5 throughout, head is normocephalic and atraumatic, neck supple, normal palpation of chest wall without tenderness SKIN: warm and dry, right hip incision site looks good without erythema or significant drainage present. She has another small wound on her upper right knee that was covered with an ABD and MATHEUS wrap, this was taken off today. NEUROLOGIC: CN 2-12 grossly intact, no sensory deficit, normal cognition, normal speech, no tremor PSYCHIATRIC: alert cooperative and oriented to person, place and time. Results & Data Results & Data ([facility]) Vital Signs (Past 12 Hours) Vital Signs Temp Pulse Pulse Resp BP Pulse Ox 08/05/21 15:24 84 08/05/21 15:09 37.2 C 94 H 20 136/71 94 08/05/21 12:00 36.8 C 107 H 20 129/63 08/05/21 07:28 88 08/05/21 07:11 37.0 C 82 20 130/60 94 Laboratory Results Short CBC 08/04/21 08/04/21 08/05/21 Range/Units 16:25 20:08 06:33 WBC 9.71 (4.8-10.8) K/uL Hgb 8.7 L 8.0 L 8.0 L (12.0-16.0) g/dL Hct 26.3 L 24.6 L 24.3 L (37-47) % Plt Count 275 (130-400) K/uL BMP 08/05/21 06:33 Sodium 139 Potassium 3.1 L Chloride 104 Carbon Dioxide 29 BUN 27 H Creatinine 3.47 H D Glucose 98 Calcium 8.4 L Medications Administered Current Inpatient Medications Acetaminophen (Acetaminophen 325 Mg Tab) 650 mg PO Q4H PRN PRN Reason: Moderate Pain Stop: 09/02/21 17:19 Last Admin: 08/04/21 10:15 Dose: 650 mg Documented by: Atorvastatin Calcium (Atorvastatin 20 Mg Tab) 20 mg PO QAM [facility] Stop: 09/03/21 08:59 Last Admin: 08/05/21 08:32 Dose: 20 mg Documented by: Bisacodyl (Bisacodyl 5 Mg Tabec) 5 mg PO DAILY [facility] Stop: 09/03/21 08:59 Last Admin: 08/05/21 08:31 Dose: 5 mg Documented by: Digoxin (Digoxin 0.125 Mg Tab) 0.0625 mg PO MoWeFr@1600 [facility] Stop: 09/03/21 22:44 Last Admin: 08/04/21 23:01 Dose: 0.0625 mg Documented by: Metoprolol Succinate (Metoprolol Succ 25mg Ext Rel Tab) 12.5 mg PO BID [facility] Stop: 09/02/21 20:59 Last Admin: 08/05/21 08:30 Dose: 12.5 mg Documented by: Ondansetron HCl (Ondansetron Inj 2 Mg/Ml 2 Ml Vial) 4 mg IV Q4H PRN PRN Reason: Nausea And Vomiting Stop: 09/02/21 17:19 Pantoprazole Sodium (Pantoprazole 40 Mg Tab) 40 mg PO QAM PRN; Protocol PRN Reason: Stomach Upset Stop: 09/02/21 17:24 Last Admin: 08/05/21 08:31 Dose: 40 mg Documented by: Sevelamer HCl (Sevelamer Hcl 800 Mg Tablet) 800 mg PO TIDM [facility] Stop: 09/02/21 17:19 Last Admin: 08/05/21 13:06 Dose: 800 mg Documented by: Vitamin B Complex/Folic Acid (Nephrocaps) 1 cap PO QPM [facility] Stop: 09/02/21 20:59 Last Admin: 08/04/21 19:50 Dose: 1 cap Documented by:
[2021-08-05] MEDS: ACETAMINOPHEN 325 MG TAB PO PRN (20:50)
[2021-08-05] MEDS: NEPHROCAPS PO SCH (20:50)
[2021-08-06] MEDS: METOPROLOL SUCC 25MG EXT REL TAB PO SCH ×2 (08:21→20:11)
[2021-08-06] MEDS: SEVELAMER HCL 800 MG TABLET PO SCH ×3 (08:22→17:18)
[2021-08-06] MEDS: ATORVASTATIN 20 MG TAB PO SCH (08:22)
--- NOTE | 2021-08-06 09:18 | Nephrology Progress Note ---
Date of Service August 06, 2021 Assessment & Plan (1) ESRD (end stage renal disease) on dialysis: Plan: Her last dialysis was on Saturday , although she is a TTS . -Looks comfortable today electrolytes are within normal range. -Dialyze again on Saturday if needed or she can go back to her TTS ,depending on the morning labs. -continue with 10,000 EPO dialysis (2) Anemia: Plan: Patient reports no bleeding from the surgical site, Hb has been stable. Continue with 10,000 EPO on dialysis. Blood transfusion is Hb less than 7. Admission and Anticipated Discharge Date Admission Date: August 03, 2021 Subjective Sitting up comfortably. No shortness of breath no pedal edema. Further bleeding from surgical site reported. Review of Systems Review of Systems: All systems reviewed & are unremarkable except as noted in Subjective Physical Exam Physical Exam: GENERAL: Elderly white female. Comfortable, awake, alert, oriented x3. HEENT: Mucous membranes are moist. NECK: Supple. No jugular venous distention. CHEST: Bilaterally clear to auscultation. CARDIOVASCULAR: S1, S2 irregular. Soft systolic murmur heard. ABDOMEN: Soft, nontender. EXTREMITIES: Show no edema. AV fistula is present with good bruit and thrill. Results & Data ([facility]) Vital Signs (Past 12 Hours) Vital Signs Temp Pulse Pulse Pulse Resp BP Pulse Ox 08/06/21 07:31 83 08/06/21 07:14 36.8 C 76 16 124/60 94 08/05/21 22:22 37 C 79 18 117/80 95 Laboratory Results 08/05/21 06:33 08/05/21 06:33 (1) Anemia Anemia type: unspecified type Qualified Code(s): D64.9 - Anemia, unspecified
[2021-08-06 10:26] LABS: Hematocrit (blood only) 28.3 % (37-47); Mean Corpuscular Hemoglobin 31.1 pg (25-34); Mean Corpuscular Hgb Conc 31.8 g/dL (32-36); Mean Corpuscular Volume 97.9 fL (80-100); Mean Platelet Volume 8.7 fL (7.4-10.4); Platelet Count 309 K/uL (130-400); RDW Coefficient of Variation 16.6 % (11.5-14.5); Red Blood Count 2.89 M/uL (4.2-5.4); White Blood Count 10.51 K/uL (4.8-10.8)
[2021-08-06 11:06] LABS: BUN Creatinine Ratio 7.9 (10-20); Calcium 8.2 mg/dl (8.5-10.1); Creatinine Clr Calc Pharmacy 4.8 ml/min; Est GFR (African American) 7.3 ml/min; Est GFR (Non-African American) 6.3 ml/min; Potassium 3.6 mmol/L (3.5-5.1)
[2021-08-06] MEDS: ACETAMINOPHEN 325 MG TAB PO PRN (11:09)
[2021-08-06] MEDS: bisacodyL 5 MG TABEC PO SCH (11:10)
[2021-08-06] MEDS ORDERED: traMADol HCL 50 MG TABLET PO PRN (15:36)
[2021-08-06] MEDS: ACETAMINOPHEN 500 MG TAB PO SCH (17:18)
--- NOTE | 2021-08-06 19:53 | Hospitalist Progress Note ---
Date of Service August 06, 2021 Assessment & Plan (1) Postoperative anemia: Plan: -S/P R intertrochanteric hip fracture ORIF on 07/[address] Artis MD at [facility] -cont holding coumadin -received 1 unit pRBCs this admission with improvement in Hb which remains stable. She is asymptomatic. Cont to trend in am-no further transfusion needed at this time. This is in the setting of chronic anemia secondary to ESRD. Receives EPO on dialysis. (2) Paroxysmal A-fib: Plan: chronic, controlled. Cont digoxin/Toprol per home regimen. Coumadin remains on hold in setting of acute postop blood loss anemia. She notably has been in sinus rhythm during this entire admission. (3) ESRD (end stage renal disease) on dialysis: Plan: Nephrology following, normal regimen is Sat. Per nephrology next planned hemodialysis session will be Saturday. Continue sevelamer per home regimen (4) DVT prophylaxis: Plan: Warfarin contraindicated in setting of anemia. Full Code Dispo-back to rehab after the weekend. She is medically stable for discharge. Followup with Orthopedics per prior instructions given. Gina Billy DO [facility] Hospitalist Admission and Anticipated Discharge Date Admission Date: August 03, 2021 Subjective 86 yo F s/p R hip surgery with subsequent bleeding and post operative anemia. Hemoglobin improved at 9.0 this morning Patient denies lightheadedness, shortness of breath, chest pain. She has some pain in her right leg and we discussed stepping up to scheduled Tylenol. I also explained TRamadol to her as needed. Afebrile and no chills No pain from surgical site. Tolerating PO Review of Systems Review of Systems: At least ten systems were reviewed and negative except as indicated in HPI above. Physical Exam Physical Exam: CONSTITUTIONAL: WNWD, vitals as above, generally well- appearing EYES: normal conjunctivae, no scleral icterus ENT: external ear and nose normal, MMM RESPIRATORY: clear to auscultation bilaterally, no crackles, rales or wheezes, normal respiratory effort CARDIOVASCULAR: regular rate and rhythm, S1 and 2 heard without murmurs, gallops or rubs, no JVD, no peripheral edema GASTROINTESTINAL: soft, nontender, ND, no guarding MUSCULOSKELETAL: strength 5/5 throughout, head is normocephalic and atraumatic, neck supple, normal palpation of chest wall without tenderness SKIN: warm and dry, multiple right lateral leg incisions that are well healed, closed with bryan. NEUROLOGIC: CN 2-12 grossly intact, no sensory deficit, normal cognition, normal speech, no tremor PSYCHIATRIC: alert cooperative and oriented to person, place and time. Results & Data Results & Data ([facility]) Vital Signs (Past 12 Hours) Vital Signs Temp Pulse Pulse Pulse Resp BP Pulse Ox 08/06/21 19:43 36.6 C 88 20 145/72 H 96 08/06/21 16:05 82 08/06/21 11:41 36.4 C L 76 20 129/70 95 Laboratory Results Short CBC 08/06/21 Range/Units 10:10 WBC 10.51 (4.8-10.8) K/uL Hgb 9.0 L (12.0-16.0) g/dL Hct 28.3 L (37-47) % Plt Count 309 (130-400) K/uL BMP 08/06/21 10:10 Sodium 136 Potassium 3.6 D Chloride 103 Carbon Dioxide 25 BUN 44 H D Creatinine 5.62 H* D Glucose 211 H Calcium 8.2 L Medications Administered Current Inpatient Medications Acetaminophen (Acetaminophen 500 Mg Tab) 1,000 mg PO Q8H [facility] Stop: 09/05/21 17:59 Last Admin: 08/06/21 17:18 Dose: 1,000 mg Documented by: Atorvastatin Calcium (Atorvastatin 20 Mg Tab) 20 mg PO QAM [facility] Stop: 09/03/21 08:59 Last Admin: 08/06/21 08:22 Dose: 20 mg Documented by: Bisacodyl (Bisacodyl 5 Mg Tabec) 5 mg PO DAILY [facility] Stop: 09/03/21 08:59 Last Admin: 08/06/21 11:10 Dose: Not Given Documented by: Digoxin (Digoxin 0.125 Mg Tab) 0.0625 mg PO MoWeFr@1600 [facility] Stop: 09/03/21 22:44 Last Admin: 08/04/21 23:01 Dose: 0.0625 mg Documented by: Metoprolol Succinate (Metoprolol Succ 25mg Ext Rel Tab) 12.5 mg PO BID [facility] Stop: 09/02/21 20:59 Last Admin: 08/06/21 08:21 Dose: 12.5 mg Documented by: Ondansetron HCl (Ondansetron Inj 2 Mg/Ml 2 Ml Vial) 4 mg IV Q4H PRN PRN Reason: Nausea And Vomiting Stop: 09/02/21 17:19 Pantoprazole Sodium (Pantoprazole 40 Mg Tab) 40 mg PO QAM PRN; Protocol PRN Reason: Stomach Upset Stop: 09/02/21 17:24 Last Admin: 08/05/21 08:31 Dose: 40 mg Documented by: Sevelamer HCl (Sevelamer Hcl 800 Mg Tablet) 800 mg PO TIDM [facility] Stop: 09/02/21 17:19 Last Admin: 08/06/21 17:18 Dose: 800 mg Documented by: Tramadol HCl (Tramadol Hcl 50 Mg Tablet) 50 mg PO Q4H PRN PRN Reason: Pain Stop: 09/05/21 15:35 Vitamin B Complex/Folic Acid (Nephrocaps) 1 cap PO QPM [facility] Stop: 09/02/21 20:59 Last Admin: 08/05/21 20:50 Dose: 1 cap Documented by:
[2021-08-06] MEDS: NEPHROCAPS PO SCH (20:11)
[2021-08-07] MEDS: ACETAMINOPHEN 500 MG TAB PO SCH ×3 (01:08→16:34)
[2021-08-07 06:22] LABS: Hematocrit (blood only) 24.6 % (37-47); Hemoglobin 7.7 g/dL (12.0-16.0); Mean Corpuscular Hemoglobin 30.6 pg (25-34); Mean Corpuscular Hgb Conc 31.3 g/dL (32-36); Mean Corpuscular Volume 97.6 fL (80-100); Mean Platelet Volume 8.6 fL (7.4-10.4); Platelet Count 265 K/uL (130-400); RDW Coefficient of Variation 16.7 % (11.5-14.5); RDW Standard Deviation 56.3 fL (36.4-46.3); Red Blood Count 2.52 M/uL (4.2-5.4); White Blood Count 9.64 K/uL (4.8-10.8)
[2021-08-07 07:13] LABS: BUN Creatinine Ratio 8.3 (10-20); Calcium 8.3 mg/dl (8.5-10.1); Creatinine Clr Calc Pharmacy 3.9 ml/min; Est GFR (African American) 5.6 ml/min; Est GFR (Non-African American) 4.8 ml/min; Phosphorus 2.6 mg/dl (2.5-4.9); Potassium 3.5 mmol/L (3.5-5.1)
[2021-08-07] MEDS: SEVELAMER HCL 800 MG TABLET PO SCH ×3 (07:55→16:33)
[2021-08-07] MEDS: bisacodyL 5 MG TABEC PO SCH (07:55)
[2021-08-07] MEDS: METOPROLOL SUCC 25MG EXT REL TAB PO SCH ×3 (07:55→21:17)
[2021-08-07] MEDS: ATORVASTATIN 20 MG TAB PO SCH (07:55)
[2021-08-07] MEDS ORDERED: SODIUM CHLORIDE 0.9% 1000ML 1,000 ML IV PRN (08:02)
[2021-08-07] MEDS ORDERED: EPOETIN ALFA 20,000 UNITS/ML VIAL IV ONE (08:02)
[2021-08-07] MEDS ORDERED: IRON SUCROSE 100 MG in SYRINGE 0 ML IV SCH (09:00)
--- NOTE | 2021-08-07 14:38 | Hospitalist Progress Note ---
Date of Service August 07, 2021 Assessment & Plan (1) Postoperative anemia: Plan: -S/P R intertrochanteric hip fracture ORIF on 07/[address] Artis MD at [facility] Did receive 1 unit of PRBC during this admission. Hemoglobin today at 7.7. Patient did undergo dialysis session today. EPO on dialysis Given her worsening anemia in the setting of ESRD discussed the risks and benefits of anticoagulation with the patient. Patient decided to stop Coumadin for now. (2) Paroxysmal A-fib: Plan: - Hx of such, rate controlled with digoxin - Hold Coumadin as above, routinely takes 5 mg on all days except for Saturdays 7.5 mg - (3) HTN (hypertension): Plan: -Blood pressure stable currently, continue metoprolol succinate 12.5 twice daily , digoxin 62.5 mg MWF (4) Hyperlipemia: Plan: -Continue atorvastatin 20 mg daily (5) ESRD (end stage renal disease) on dialysis: Plan: Nephrology on board for routine dialysis session. (6) Osteoporosis: Plan: - noted, PT/OT consults DVT ppx: - teds, scds, hold Coumadin CODE: Full code Admission and Anticipated Discharge Date Admission Date: August 03, 2021 Subjective Patient doing okay today. She was seen post dialysis. Currently having lunch. Denies being chest pain, shortness of breath, abdominal pain or diarrhea. Rest of the review system is negative. Review of Systems Review of Systems: All systems reviewed & are unremarkable except as noted in HPI & below Physical Exam Physical Exam: General: A&Ox3 HENT: NCAT, MMM, EOMI Eyes: PERRLA Neck: Supple, normal range of motion CVS: normal rate and rhythm Resp: b/l good breath sounds Abdomen: Soft, ND/NT Extremities: absence of any edema Neuro: face symmetric, no focal deficit appreciated Skin: warm and dry, no rashes/lesions/errythema MSK: normal ROM, no joint swelling/erythema Results & Data Results & Data ([facility]) Vital Signs (Past 12 Hours) Vital Signs Temp Pulse Pulse Pulse Resp BP BP 08/07/21 13:33 36.7 C 81 139/58 L 08/07/21 13:00 94 H 143/55 H 08/07/21 12:40 86 126/54 L 08/07/21 12:20 81 133/53 L 08/07/21 12:00 81 137/50 L 08/07/21 11:40 80 131/53 L 08/07/21 11:20 72 121/50 L 08/07/21 11:00 86 143/47 H 08/07/21 10:40 81 133/49 L 08/07/21 10:20 82 125/50 L 08/07/21 10:00 87 137/54 L 08/07/21 09:47 88 08/07/21 09:46 93 H 123/56 L 08/07/21 09:38 36.7 C 73 88 08/07/21 07:38 36.5 C 73 18 117/48 L 08/07/21 04:28 36.7 C 104 H 17 129/60 Pulse Ox 08/07/21 13:33 08/07/21 13:00 08/07/21 12:40 08/07/21 12:20 08/07/21 12:00 08/07/21 11:40 08/07/21 11:20 08/07/21 11:00 08/07/21 10:40 08/07/21 10:20 08/07/21 10:00 08/07/21 09:47 08/07/21 09:46 08/07/21 09:38 08/07/21 07:38 95 08/07/21 04:28 95
--- NOTE | 2021-08-07 15:55 | Dialysis Progress Note ---
Date of Service August 07, 2021 Assessment & Plan (1) ESRD (end stage renal disease) on dialysis: Plan: Her last dialysis was on Saturday and will dialyze today before transfer to [facility], although she is a TTS . -Looks comfortable today electrolytes are within normal range. -continue with EPO at dialysis (2) Anemia: Plan: hgb did drop past 24 hrs Continue with aggressive EPO on dialysis. Blood transfusion for sx anemia or for Hb less than 7. Admission and Anticipated Discharge Date Admission Date: August 03, 2021 Subjective tired but no c/o. states pain controlled. no n/v; no further bleeding Review of Systems Review of Systems: All systems reviewed & are unremarkable except as noted in Subjective Physical Exam Constitutional: well developed, well nourished and comfortable; no acute distress Eyes: EOM intact bilaterally ENMT: Ears: no external ear abnormality Nose: no external nose abnormality Mouth: + dry oral mucous membranes Neck: no nuchal rigidity Respiratory: normal respiratory effort Auscultation: + diminished lung sounds Cardiovascular: Rate/Rhythm: regular rate and regular rhythm Extremities: + AV fistula (+t/b); no edema Gastrointestinal (Abdomen): Inspection/Auscultation: normal bowel sounds Percussion/Palpation: abdomen soft; abdomen nontender Musculoskeletal: Extremities: strength 5/5 throughout Skin: no rashes, warm and dry Neurologic: cruz, fluent speech, no tremor Results & Data ([facility]) Vital Signs (Past 12 Hours) Vital Signs Temp Pulse Pulse Pulse Resp BP BP 08/07/21 15:06 115 H 08/07/21 13:33 36.7 C 81 139/58 L 08/07/21 13:00 94 H 143/55 H 08/07/21 12:40 86 126/54 L 08/07/21 12:20 81 133/53 L 08/07/21 12:00 81 137/50 L 08/07/21 11:40 80 131/53 L 08/07/21 11:20 72 121/50 L 08/07/21 11:00 86 143/47 H 08/07/21 10:40 81 133/49 L 08/07/21 10:20 82 125/50 L 08/07/21 10:00 87 137/54 L 08/07/21 09:47 88 08/07/21 09:46 93 H 123/56 L 08/07/21 09:38 36.7 C 73 88 08/07/21 07:38 36.5 C 73 18 117/48 L 08/07/21 04:28 36.7 C 104 H 17 129/60 Pulse Ox 08/07/21 15:06 08/07/21 13:33 08/07/21 13:00 08/07/21 12:40 08/07/21 12:20 08/07/21 12:00 08/07/21 11:40 08/07/21 11:20 08/07/21 11:00 08/07/21 10:40 08/07/21 10:20 08/07/21 10:00 08/07/21 09:47 08/07/21 09:46 08/07/21 09:38 08/07/21 07:38 95 08/07/21 04:28 95 Laboratory Results 08/07/21 06:07 08/07/21 06:07 (1) Anemia Anemia type: unspecified type Qualified Code(s): D64.9 - Anemia, unspecified
[2021-08-07] MEDS: DIGOXIN 0.125 MG TAB PO SCH (16:33)
[2021-08-07] MEDS: NEPHROCAPS PO SCH (21:16)
[2021-08-08] MEDS: ACETAMINOPHEN 500 MG TAB PO SCH ×3 (02:12→17:37)
[2021-08-08 06:33] LABS: Basophils # (auto) 0.05 K/uL (0-0.2); Basophils % (auto) 0.5 %; Eosinophils % (auto) 3.3 %; Hematocrit (blood only) 26.1 % (37-47); Hemoglobin 8.2 g/dL (12.0-16.0); Immature Granulocytes # (auto) 0.32 K/uL (0.00-0.02); Immature Granulocytes % (auto) 3.5 %; Lymphocytes # (auto) 1.47 K/uL (1.2-3.4); Lymphocytes % (auto) 16.1 %; Mean Corpuscular Hemoglobin 31.2 pg (25-34); Mean Corpuscular Hgb Conc 31.4 g/dL (32-36); Mean Corpuscular Volume 99.2 fL (80-100); Mean Platelet Volume 8.7 fL (7.4-10.4); Monocytes # (auto) 1.25 K/uL (0.11-0.59); Monocytes % (auto) 13.7 %; Neutrophils # (auto) 5.74 K/uL (1.4-6.5); Neutrophils % (auto) 62.9 %; Platelet Count 281 K/uL (130-400); RDW Coefficient of Variation 17.3 % (11.5-14.5); RDW Standard Deviation 58.7 fL (36.4-46.3); Red Blood Count 2.63 M/uL (4.2-5.4); White Blood Count 9.13 K/uL (4.8-10.8)
[2021-08-08] MEDS: ATORVASTATIN 20 MG TAB PO SCH (08:35)
[2021-08-08] MEDS: SEVELAMER HCL 800 MG TABLET PO SCH ×3 (08:35→17:36)
[2021-08-08] MEDS: bisacodyL 5 MG TABEC PO SCH (08:35)
[2021-08-08] MEDS: METOPROLOL SUCC 25MG EXT REL TAB PO SCH ×2 (08:35→21:44)
--- NOTE | 2021-08-08 13:27 | Hospitalist Progress Note ---
Date of Service August 08, 2021 Assessment & Plan (1) Postoperative anemia: Plan: -S/P R intertrochanteric hip fracture ORIF on 07/[address] Artis MD at [facility] Did receive 1 unit of PRBC during this admission. Hemoglobin today at 8.2. Patient did undergo dialysis session today. EPO on dialysis Given her worsening anemia in the setting of ESRD discussed the risks and benefits of anticoagulation with the patient. Patient decided to stop Coumadin for now. Patient is medically ready for discharge. Currently she is awaiting insurance authorization for discharge to [facility]. (2) Paroxysmal A-fib: Plan: - Hx of such, rate controlled with digoxin - Hold Coumadin as above, routinely takes 5 mg on all days except for Saturdays 7.5 mg - (3) HTN (hypertension): Plan: -Blood pressure stable currently, continue metoprolol succinate 12.5 twice daily, digoxin 62.5 mg MWF (4) Hyperlipemia: Plan: -Continue atorvastatin 20 mg daily (5) ESRD (end stage renal disease) on dialysis: Plan: Nephrology on board for routine dialysis session. (6) Osteoporosis: Plan: - noted, PT/OT consults DVT ppx: - teds, scds, hold Coumadin CODE: Full code Admission and Anticipated Discharge Date Admission Date: August 03, 2021 Subjective Doing okay this morning. No new issues. Hemoglobin at 8.2. Reports she did notice very slight bright red blood in the setting of pressure ulcer. Denies any melena. Review of Systems Review of Systems: All systems reviewed & are unremarkable except as noted in HPI & below Physical Exam Physical Exam: General: A&Ox3 HENT: NCAT, MMM, EOMI Eyes: PERRLA Neck: Supple, normal range of motion CVS: normal rate and rhythm Resp: b/l good breath sounds Abdomen: Soft, ND/NT Extremities: absence of any edema Neuro: face symmetric, no focal deficit appreciated Skin: warm and dry, no rashes/lesions/errythema MSK: normal ROM, no joint swelling/erythema Results & Data Results & Data ([facility]) Vital Signs (Past 12 Hours) Vital Signs Temp Pulse Pulse Resp BP Pulse Ox 08/08/21 11:41 36.4 C L 89 20 146/57 H 96 08/08/21 07:00 101 H 08/08/21 04:03 36.8 C 90 18 136/60 93 08/08/21 01:44 94 H
[2021-08-08] MEDS: NEPHROCAPS PO SCH (21:44)
[2021-08-09] MEDS ORDERED: MELATONIN 3 MG TAB PO PRN (01:08)
[2021-08-09] MEDS: ACETAMINOPHEN 500 MG TAB PO SCH ×3 (01:15→16:49)
[2021-08-09] MEDS: bisacodyL 5 MG TABEC PO SCH (08:31)
[2021-08-09] MEDS: SEVELAMER HCL 800 MG TABLET PO SCH ×3 (08:32→16:33)
[2021-08-09] MEDS: ATORVASTATIN 20 MG TAB PO SCH (08:32)
[2021-08-09] MEDS ORDERED: SODIUM CHLORIDE 0.9% 1000ML 1,000 ML IV PRN (09:10)
[2021-08-09] MEDS ORDERED: HEPARIN SOD (PORCINE) 1000 UNIT/ML IV SCH (09:20)
[2021-08-09] MEDS ORDERED: IRON SUCROSE 100 MG in SYRINGE 0 ML IV ONE (09:30)
[2021-08-09] MEDS ORDERED: EPOETIN ALFA 20,000 UNITS/ML VIAL IV SCH (09:30)
[2021-08-09] MEDS: HEPARIN SOD (PORCINE) 1000 UNIT/ML IV SCH ×3 (12:29→14:32)
--- NOTE | 2021-08-09 13:01 | Dialysis Progress Note ---
Date of Service August 09, 2021 Assessment & Plan (1) ESRD (end stage renal disease) on dialysis: Plan: Her last dialysis was on Saturday and will dialyze today before transfer to [facility]. Although she is a TTS will be running her MWF d/t staffing issues for now -Looks comfortable today; volume status ok and electrolytes are within normal range. -continue with EPO at dialysis (2) Anemia: Plan: hgb did drop afater admission but now uptrending Continue with aggressive EPO on dialysis. Blood transfusion for sx anemia or for Hb less than 7. Admission and Anticipated Discharge Date Admission Date: August 03, 2021 Subjective seen on HD; tired but no complaints, wakens fully; no sob, no n/v Review of Systems Review of Systems: All systems reviewed & are unremarkable except as noted in Subjective Physical Exam Constitutional: well developed, well nourished and comfortable; no acute distress Eyes: EOM intact bilaterally ENMT: Ears: no external ear abnormality Nose: no external nose abnormality Mouth: + dry oral mucous membranes Neck: no nuchal rigidity Respiratory: normal respiratory effort Auscultation: + diminished lung sounds Cardiovascular: Rate/Rhythm: regular rate and regular rhythm Extremities: + AV fistula (+t/b); no edema Gastrointestinal (Abdomen): Inspection/Auscultation: normal bowel sounds Percussion/Palpation: abdomen soft; abdomen nontender Musculoskeletal: Extremities: strength 5/5 throughout Skin: no rashes, warm and dry 2 surgical incisions CDI L lateral thigh Results & Data ([facility]) Vital Signs (Past 12 Hours) Vital Signs Temp Pulse Pulse Pulse Resp BP BP 08/09/21 12:20 80 141/58 H 08/09/21 12:00 36.6 C 81 93 H 16 147/57 H 126/63 08/09/21 11:40 90 139/62 08/09/21 11:32 83 136/66 08/09/21 11:29 37.0 C 91 H 08/09/21 07:23 76 08/09/21 07:19 36.5 C 77 18 134/58 L 08/09/21 02:57 36.8 C 74 16 128/56 L Pulse Ox 08/09/21 12:20 08/09/21 12:00 97 08/09/21 11:40 08/09/21 11:32 08/09/21 11:29 08/09/21 07:23 08/09/21 07:19 94 08/09/21 02:57 97 Laboratory Results 08/09/21 11:20 08/07/21 06:07 (1) Anemia Anemia type: unspecified type Qualified Code(s): D64.9 - Anemia, unspecified
--- NOTE | 2021-08-09 16:00 | Hospitalist Progress Note ---
Date of Service August 09, 2021 delayed entry date of service as above Assessment & Plan (1) Postoperative anemia: Plan: per Dr. Herbert' notes (hospitalist): -S/P R intertrochanteric hip fracture ORIF on 07/[address] Artis MD at [facility] Did receive 1 unit of PRBC during this admission. Hemoglobin improved 8.2. had HD while admitted, EPO given Given her worsening anemia in the setting of ESRD discussed the risks and benefits of anticoagulation with the patient. Patient decided to stop Coumadin for now. 08/09/21 Hg stable at 8.7 no signs of active bleeding coumadin on hold per discussion with patient (2) Paroxysmal A-fib: Plan: per Dr. Herbert' notes (hospitalist): - Hx of such, rate controlled with digoxin - Hold Coumadin as above, routinely takes 5 mg on all days except for Saturdays 7.5 mg (3) HTN (hypertension): Plan: -Blood pressure stable currently, continue metoprolol succinate 12.5 twice daily, digoxin 62.5 mg MWF (4) Hyperlipemia: Plan: -Continue atorvastatin 20 mg daily (5) ESRD (end stage renal disease) on dialysis: Plan: Nephrology on board for routine dialysis session. (6) Osteoporosis: Plan: - noted, PT/OT consults DVT ppx: - teds, scds, hold Coumadin CODE: Full code Admission and Anticipated Discharge Date Admission Date: August 03, 2021 Subjective ff up for anemia, etc seen resting in bed, comfortable in good spirits states she feels better overall no chest pain, dyspnea, palpitations, dizziness denies melena, hematochezia, hematuria no hip pain no other symptoms Review of Systems Review of Systems: all noted and negative except for above Physical Exam Physical Exam: General- oriented x 3, not in distress, speaks in sentences with no effort or accessory muscle use Head- atraumatic Eyes- PERRL, EOMI, anicteric ENT- oropharynx clear Neck- supple, no JVD, no adenopathy, no thyromegaly; carotids +2/2, no bruits appreciated Lungs- clear to auscultation bilaterally, no rales/wheezes Heart- normal rate, regular rhythm; no murmur, no gallop, no rub appreciated Abdomen- normal bowel sounds, nondistended, soft, nontender, no masses or hepatosplenomegaly Extremities- no pretibial edema, no calf tenderness; peripheral pulses intact right hip: surgical site without bleeding, discharge, bryan inplace, minimal edema of r thigh but no erythema/warmth/tenderness Neuro- alert, oriented x 3; CN 2-12 grossly intact; motor 5/5 bilaterally;sensation 100% on all extremities; no other gross focal neurologic deficits Skin- warm & dry Results & Data Results & Data ([facility]) Vital Signs (Past 12 Hours) Vital Signs Temp Pulse Pulse Pulse Resp BP BP 08/09/21 15:54 37.1 C 96 H 18 123/57 L 08/09/21 15:15 36.5 C 88 147/55 H 08/09/21 15:02 90 141/55 H 08/09/21 14:41 84 144/58 H 08/09/21 14:20 82 135/55 L 08/09/21 14:00 83 141/58 H 08/09/21 13:40 92 H 154/63 H 08/09/21 13:20 93 H 142/53 H 08/09/21 13:00 83 132/52 L 08/09/21 12:40 82 127/59 L 08/09/21 12:20 80 141/58 H 08/09/21 12:00 36.6 C 81 93 H 16 147/57 H 126/63 08/09/21 11:40 90 139/62 08/09/21 11:32 83 136/66 08/09/21 11:29 37.0 C 91 H 08/09/21 07:23 76 08/09/21 07:19 36.5 C 77 18 134/58 L Pulse Ox 08/09/21 15:54 95 08/09/21 15:15 08/09/21 15:02 08/09/21 14:41 08/09/21 14:20 08/09/21 14:00 08/09/21 13:40 08/09/21 13:20 08/09/21 13:00 08/09/21 12:40 08/09/21 12:20 08/09/21 12:00 97 08/09/21 11:40 08/09/21 11:32 08/09/21 11:29 08/09/21 07:23 08/09/21 07:19 94 all noted and reviewed including below
[2021-08-09] MEDS: METOPROLOL SUCC 25MG EXT REL TAB PO SCH ×2 (16:02→21:17)
[2021-08-09] MEDS: DIGOXIN 0.125 MG TAB PO SCH (16:09)
[2021-08-09] MEDS: NEPHROCAPS PO SCH (21:17)
[2021-08-10] MEDS: ACETAMINOPHEN 500 MG TAB PO SCH ×2 (01:27→10:38)
[2021-08-10] MEDS: METOPROLOL SUCC 25MG EXT REL TAB PO SCH (07:39)
[2021-08-10] MEDS: bisacodyL 5 MG TABEC PO SCH (07:40)
[2021-08-10] MEDS: SEVELAMER HCL 800 MG TABLET PO SCH ×2 (08:38→12:14)
[2021-08-10] MEDS: ATORVASTATIN 20 MG TAB PO SCH (08:38)
[2021-08-10 12:15] LABS: Cdiff Antigen Positive
[2021-08-10 12:16] LABS: Cdiff Toxin A+B Positive Cdiff Toxin (Negative)
[2021-08-10] MEDS ORDERED: HEPARIN SOD 5,000 UNIT/0.5 ML VIAL SQ SCH (12:30)
--- NOTE | 2021-08-10 12:43 | Hospitalist Progress Note ---
Date of Service August 10, 2021 Assessment & Plan (1) Anemia: (2) Post-op bleeding: Plan: Postoperative anemia: Plan: per Dr. Herbert' notes (hospitalist): -S/P R intertrochanteric hip fracture ORIF on 07/[address] Artis MD at [facility] Did receive 1 unit of PRBC during this admission. Hemoglobin improved 8.2 from 6.2 had HD while admitted, EPO given 08/10/21 Hg stable at 8.7 no signs of active bleeding anemia likely from post op blood loss coumadin held initially, will resume, refer to #2 will need outpatient ff up with Ortho in 1 week for bryan removal heparin 5000mg SC q12h while coumadin subtherapeutic for DVT Prophylaxis repeat Hg in 2-3 days, then monitor regularly continue PT/OT Paroxysmal A-fib: Plan: per Dr. Herbert' notes (hospitalist): - Hx of such, rate controlled with digoxin routinely takes coumadin 5 mg on all days except for Tuesdays and Saturdays- 7.5 mg - initially, held coumadin patient's CHADSVASC score is 6, HASBLED score 2 anemia likely from post op blood loss at this point, will resume coumadin as benefit outweigh risk resume coumadin today 7.5mg , then usual coumadin 5 mg on all days except for Tuesdays and Saturdays- 7.5 mg repeat INR daily, adjust coumadin accordingly ff up with Pharmacy Salesperson in 1-2 weeks C diff Colitis - (+) Diarrhea 08/10 stool C Diff toxin A &B positive - start Vancomycin 125mg QID x 10 days if with no improvement, switch to Fidaxomicin BL Buttock wounds - daily wound care monitor pustules on the right lateral aspect HTN (hypertension): Plan: -Blood pressure stable currently, continue metoprolol succinate 12.5 twice daily, digoxin 62.5 mg MWF Hyperlipemia: Plan: -Continue atorvastatin 20 mg daily ESRD (end stage renal disease) on dialysis: Plan: Nephrology on board for routine dialysis session. Osteoporosis: Plan: - noted, PT/OT DVT ppx: - teds, scds, heparin , coumadin CODE: Full code Disposition ff up with PCP at [facility] ff up with Ortho in 1 week ff up with Pharmacy Salesperson in 1-2 weeks Admission and Anticipated Discharge Date Admission Date: August 03, 2021 Subjective ff up for anemia, esrd, etc seen resting in bed, comfortable in good spirits noted to have several episodes of diarrhea this AM no abdominal pain, nausea/vomiting, chills no chest pain, dyspnea, palpitations, dizziness no bleeding denies history of bleeding in the past while on coumadin no other symptoms Review of Systems Review of Systems: all noted and negative except for above Physical Exam Physical Exam: General- oriented x 3, not in distress, speaks in sentences with no effort or accessory muscle use Eyes- anicteric Neck- no JVD Lungs- clear breath sounds bilaterally, no rales/wheezes Heart- normal rate, regular rhythm; no murmurs Abdomen- normal bowel sounds, nondistended, soft, nontender Buttocks- (+) small wounds on the medial aspect BL, no signs of infection (+) pustules on the right lateral buttock- denies pain Extremities- no pretibial edema, no calf tenderness right thigh: surgical site- bryan in place, no signs of infection mild thigh edema Neuro- alert, oriented x 3; no gross focal neurologic deficits Skin- warm & dry Results & Data Results & Data ([facility]) Vital Signs (Past 12 Hours) Vital Signs Temp Pulse Pulse Pulse Resp BP Pulse Ox 08/10/21 12:02 36.7 C 81 88 18 119/57 L 95 08/10/21 11:47 36.7 C 81 18 119/57 L 95 08/10/21 07:32 36.7 C 96 H 18 148/67 H 95 08/10/21 07:00 93 H 08/10/21 04:23 36.7 C 81 20 134/62 95 all noted and reviewed including below (1) Anemia Anemia type: unspecified type Qualified Code(s): D64.9 - Anemia, unspecified (2) Post-op bleeding Procedure type: musculoskeletal Surgical complication system/body Area: musculoskeletal system Qualified Code(s): M96.830 - Postprocedural hemorrhage of a musculoskeletal structure following a musculoskeletal system procedure
[2021-08-10] MEDS ORDERED: VANCOMYCIN HCL 125 MG/2.5ML SOLN PO SCH (13:00)
[2021-08-10] MEDS ORDERED: WARFARIN SOD 7.5 MG TAB PO ONE (13:00)
[2021-08-10] MEDS ORDERED: RASPBERRY SYRUP 5 ML UDP PO SCH (13:00)
[2021-08-10 13:30] LABS: Prothrombin Time 10.3 Seconds (9.0-12.0)
[2021-08-11] MEDS ORDERED: WARFARIN SOD 5 MG TAB PO SCH (16:00)
[2021-08-12] MEDS ORDERED: WARFARIN SOD 7.5 MG TAB PO SCH (16:00)
--- NOTE | 2021-08-25 08:37 | Discharge Summary ---
Date of Service August 25, 2021 Admission HPI Per Admitting Provider This is an 86 yo F with PMhx of paroxysmal afib on coumadin, HTN, HLD, Osteopenia, Iron deficiency, ESRD on dialysis, hx of covid-19 infection who underwent recent ORIF of R intertrochanteric femur fracture on 07/31/[address] Sai Wisdom MD. The patient subsequently required a transfusion while in hospital for hbg of 6.8. which improved to 8.3-8.4. She was discharged to [facility] for physical therapy. Today the patient was noted to have a soaked bloody dressing over the right hip wound after participating in physical therapy, and was concern for active bleeding. Her BP was noted to be systolic of ~80. She did have dialysis session late last night where 1 L was pulled off. She was found to have a hemoglobin of 6.7 on recheck at , and therefore transferred to [facility]. En route to the hospital, her BP improved without any intervention or fluids. BP here has been in 120s/50-60s. Troponin is noted to be elevated at 0.9, however she denies any chest pain or shortness of breath, no chest heaviness, or flutter. INR is 1.6 as she is anticoagulated on Coumadin for paroxysmal A. fib. Routinely she takes 5 mg all days except for Saturdays when she takes 7.5 mg Coumadin. She did take coumadin last night but is unsure of how much. Denies lightheadedness or dizziness. Admission Exam (Per Admitting) Constitutional General: awake, alert, no apparent distress Head: Normocephalic, atraumatic ENT: PERRL, EOMI, no pharyngeal exudate, mucous membranes moist, area of ecchymosis near inside corner of the left eye Chest: Clear to auscultation, on room air, no adventitious breath sounds Cardiac: Regular rate and rhythm, no murmur, no JVD, normal peripheral pulses, good capillary refill Abdominal: NABS x 4 quadrants, soft, nondistended, nontender to palpation, no rebound or guarding Extremities: Left upper extremity with AVF, + thrill and bruit, + multiple areas of ecchymosis over upper extremities from blood draws during her last hospital stay, RLE hip dressing C/D/I, incision site of R distal femur dressing C/D/I, no peripheral edema or erythema, calfs nontender to palpation Psych: Normal mood and affect Neuro: AAO x 3, strength intact bilaterally and rated 5/5, no motor deficits, speech is clear, no peripheral sensory deficits Discharge Data Consultations 08/03/21 14:59 ED Decision to Admit Stat 08/03/21 17:20 Consult Nephrology Routine Hospital Course (1) Anemia: (2) Post-op bleeding: Postoperative anemia: Plan: per Dr. Herbert' notes (hospitalist): -S/P R intertrochanteric hip fracture ORIF on 07/[address] Artis MD at [facility] Did receive 1 unit of PRBC during this admission. Hemoglobin improved 8.2 from 6.2 had HD while admitted, EPO given 08/10/21 Hg stable at 8.7 no signs of active bleeding anemia likely from post op blood loss coumadin held initially, will resume, refer to #2 will need outpatient ff up with Ortho in 1 week for bryan removal heparin 5000mg SC q12h while coumadin subtherapeutic for DVT Prophylaxis repeat Hg in 2-3 days, then monitor regularly continue PT/OT Paroxysmal A-fib: Plan: per Dr. Herbert' notes (hospitalist): - Hx of such, rate controlled with digoxin routinely takes coumadin 5 mg on all days except for Tuesdays and Saturdays- 7.5 mg - initially, held coumadin patient's CHADSVASC score is 6, HASBLED score 2 anemia likely from post op blood loss at this point, will resume coumadin as benefit outweigh risk resume coumadin today 7.5mg , then usual coumadin 5 mg on all days except for Tuesdays and Saturdays- 7.5 mg repeat INR daily, adjust coumadin accordingly ff up with [facility] [facility] in 1-2 weeks C diff Colitis - (+) Diarrhea 08/10 stool C Diff toxin A &B positive - start Vancomycin 125mg QID x 10 days if with no improvement, switch to Fidaxomicin BL Buttock wounds - daily wound care monitor pustules on the right lateral aspect HTN (hypertension): Plan: -Blood pressure stable currently, continue metoprolol succinate 12.5 twice daily, digoxin 62.5 mg MWF Hyperlipemia: Plan: -Continue atorvastatin 20 mg daily ESRD (end stage renal disease) on dialysis: Plan: Nephrology on board for routine dialysis session. Osteoporosis: Plan: - noted, PT/OT DVT ppx: - teds, scds, heparin , coumadin CODE: Full code Disposition ff up with PCP at [facility] ff up with Ortho in 1 week ff up with [facility] [facility] in 1-2 weeks
== END 2021-08-10 15:00 | DRG 919 ==
LOC: ED 12:33 → 2N 15:20 → SUATTDRO 15:20 → 2N 16:34
DX: E78.5 Hyperlipidemia, unspecified; A04.72 Enterocolitis due to Clostridium difficile, not specified as recurrent; I48.0 Paroxysmal atrial fibrillation; L08.9 Local infection of the skin and subcutaneous tissue, unspecified; Y92.009 Unspecified place in unspecified non-institutional (private) residence as the place of occurrence of the external cause; S72.101D Unspecified trochanteric fracture of right femur, subsequent encounter for closed fracture with routine healing; Z88.0 Allergy status to penicillin; Z88.2 Allergy status to sulfonamides; I24.8 Other forms of acute ischemic heart disease; I12.0 Hypertensive chronic kidney disease with stage 5 chronic kidney disease or end stage renal disease; Z99.2 Dependence on renal dialysis; Z83.3 Family history of diabetes mellitus; D62 Acute posthemorrhagic anemia; Z96.641 Presence of right artificial hip joint; N17.9 Acute kidney failure, unspecified; N18.6 End stage renal disease; M81.0 Age-related osteoporosis without current pathological fracture; M96.830 Postprocedural hemorrhage of a musculoskeletal structure following a musculoskeletal system procedure